=== PATIENT | male | born 1990 | race Caucasian/White ===

== ENCOUNTER 2022-10-31 15:24 | Outpatient (CLI) | payer BC, SELFPAY | END 2022-10-31 15:25 | disposition home or self-care (01) | PROVIDERS: PCP Physician Assistant Medical; Visit Provider Physician Assistant Medical | DX: Z00.00 Encounter for general adult medical examination without abnormal findings (principal); D68.51 Activated protein C resistance | CPT/HCPCS: 80053; 80061; 84443 ==

== ENCOUNTER 2024-01-09 07:53 | Outpatient (CLI) | payer BC, SELFPAY | END 2024-01-09 07:54 | disposition home or self-care (01) | PROVIDERS: PCP Physician Assistant Medical; Visit Provider Physician Assistant Medical | DX: Z00.00 Encounter for general adult medical examination without abnormal findings (principal); D68.51 Activated protein C resistance; Z13.29 Encounter for screening for other suspected endocrine disorder; Z13.9 Encounter for screening, unspecified | CPT/HCPCS: 80053; 80061; 84443 ==

== ENCOUNTER 2024-04-07 07:56 | Emergency (ER) | payer BC, SELFPAY ==
[2024-04-07 08:11] VITALS: BP 138/99; PULSE 92; RESP 18; TEMP 36.8; O2SAT 98; BMI 29.4
--- NOTE | 2024-04-07 08:16 | ED.CHESTPAIN ---
HPI - Chest Pain General Time Seen by Provider: 08:16 Date Seen: 04/07/24 Chief Complaint: Chest Pain Stated Complaint: Chest pressure, palpitations, c/o weird breathing Time Seen by Provider: 04/07/24 08:16 Source: patient and RN notes reviewed Mode of arrival: ambulatory Limitations: no limitations History of Present Illness HPI narrative: Tam is a very pleasant 33-year-old male with a history of factor 5 Leiden, previous clots, currently on Eliquis, strong family history of early heart disease who comes to the emergency room with chest pain. Tam woke this morning at 0500 hours with chest pain nonradiating associated with shortness of breath that persisted for approximately 20 minutes. He notes no cough cold congestion but does describe some slight allergies. Yesterday he had a normal day and he walks quite a bit and noted no fatigue chest pain or shortness of breath at that time. His mother at the age of 42 from heart disease. His father had a maker at 48 but is still alive. Tam states that after the initial 20 minutes the chest pain improved and he had 5-10 minutes with no symptoms. It then came back for an additional 10 minutes. He also had some shortness of breath on the way to the hospital here. When I meet Tam in room 3 he states that he had some chest pressure approximately 1 minute ago but has now abated. He states that is coming and going. At this very moment he has no symptoms. Tam denies nausea abdominal pain. He does have a history of reflux but these symptoms today were different. He denies lower extremity edema calf tenderness, recent extended car rides, airplane rides or periods of immobility. 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 Tam does not smoke. He does have a few beers a few times a week. Last night he had 4-5 beers during for Saturday night football. Related Data Home Medications ?Medication ?Instructions ?Recorded ?Confirmed zinc 04/07/24 Previous Rx's ?Medication ?Instructions ?Recorded apixaban 5 mg tablet (Eliquis) 5 mg PO BID #180 tabs 01/09/24 Allergies Allergy/AdvReac Type Severity Reaction Status Date / Time Penicillins Allergy Mild Rash Verified 01/09/24 07:45 Review of Systems Status of ROS Reports: 10 or more systems reviewed and unremarkable except as noted in History and below Const Denies: fever or chills Eyes Denies: change in vision ENMT Reports: nasal congestion; Denies: throat pain, neck pain, throat swelling or nasal discharge Cardio Reports: chest pain, palpitations and shortness of breath with exertion; Denies: edema, swelling of feet/ankles or lightheadedness Resp Reports: shortness of breath; Denies: cough or wheezing GI Denies: abdominal pain, nausea, vomiting, heartburn or blood in stool Denies: painful urination Musculo Denies: back pain or neck pain Neuro Denies: headache Allergy/Immuno Denies: throat swelling or wheezing PFSH PFS Medical History History of blood clots ?Z86.718 - Personal history of other venous thrombosis and embolism (ICD-10) Family History Other Factor V Leiden mutation Social History Narrative: does not use illicit drugs has 3 children nonsmoker occasional alcohol consumption What is your current living situation?: I presently have a place to live Problems where you live: pests, such as bugs, ants, or mice In the past 12 months, utilities in danger of being shut off: no In past 12 months, lack of transportation kept you from medical appts, meetings, work, or getting things needed for daily living: no In the past 12 mos, have been you worried that your food would run out before you had money to buy more?: never true In the past 12 mos, the food you bought just didn't last and you didn't have money to buy more?: never true Smoking Status: Never smoker How often does anyone, including family, friends and others, physically hurt you: never How often does anyone, including family, friends and others, insult or talk down to you: rarely How often does anyone, including family, friends and others, threaten you with harm: never How often does anyone, including family, friends and others, scream or curse at you: rarely Little interest or pleasure in doing things: several days Feeling down, depressed, or hopeless: several days Exam Narrative Exam Narrative: Alert and oriented. Very pleasant gentleman. Slightly anxious. External ears eyes nose clear. Neck is supple. Heart with a regular rate and rhythm. No additional heart sounds murmurs or rubs noted. Lungs are clear bilaterally. Abdomen soft nontender. No pulsating mass. Lower extremities with no edema. Bilateral pedal pulses palpated and are symmetrical. Moving all extremities. Const Vital Signs, click to edit/add: Vital Signs - 24 hr 04/07/24 08:11 Temperature 98.2 F Pulse Rate [Pulse Oximeter] 92 Respiratory Rate 18 Blood Pressure [Right Upper Arm] 138/99 H Pulse Oximetry 98 Oxygen Delivery Method Room Air Documenting provider has reviewed patient's vital signs: yes Course Course ED Course: Differential diagnosis at this time includes acute coronary event, angina, pericarditis, COVID, anxiety, PE. At this time I have ordered EKG, troponin, chest x-ray, cardiac monitoring. Will get labs to include CBC, comprehensive panel, CRP, D-dimer. Reevaluation(s) Reevaluation #1: Initial troponin is negative. Patient has remained pain-free. Will await 2nd troponin. Currently awaiting Cardiology consult as patient does need some advanced imaging. Reevaluation #2: Discussed with this patient's family history, presenting symptoms. Initial troponin negative. Technical Support Specialist suggests CT angiogram. While we do not do those here, there is availability at the [facility] center same-day surgery in [place]. Patient should expect phone call from this site. Technical Support Specialist will order test and follow-up will be with Cardiology. Vital Signs Vital signs: Initial Vital Signs Temperature 98.2 F 04/07/24 08:11 Temperature Source Temporal Artery Scan 04/07/24 08:11 Pulse Rate 92 04/07/24 08:11 Respiratory Rate 18 04/07/24 08:11 Blood Pressure 138/99 H 04/07/24 08:11 Blood Pressure Mean 112 H 04/07/24 08:11 Blood Pressure Position Supine 04/07/24 08:11 Pulse Oximetry 98 04/07/24 08:11 Oxygen Delivery Method Room Air 04/07/24 08:11 Vital Signs Temperature 98.2 F 04/07/24 08:11 Pulse Rate 92 04/07/24 08:11 Respiratory Rate 18 04/07/24 08:11 Blood Pressure 138/99 H 04/07/24 08:11 Pulse Oximetry 98 04/07/24 08:11 Oxygen Delivery Method Room Air 04/07/24 08:11 Temperature 98.2 F 04/07/24 08:11 Pulse Rate 92 04/07/24 08:11 Respiratory Rate 18 04/07/24 08:11 Blood Pressure 138/99 H 04/07/24 08:11 Pulse Oximetry 98 04/07/24 08:11 Oxygen Delivery Method Room Air 04/07/24 08:11 Medications Administered Medications: Discontinued Medications Generic Name Dose Route Start Last Admin Trade Name Judah PRN Reason Stop Dose Admin Aspirin 81 mg 04/07/24 11:56 04/07/24 12:04 Aspirin 81 Mg Tab.Chew PO 04/07/24 11:57 81 mg ONCE ONE Administration MDM - Chest Pain MDM Narrative Medical decision making narrative: 1. Chest pain-patient was pain-free during the majority of his stay here. EKG and troponins both negative. Chest x-ray by my read reassuring. CTA will be ordered by cardiology and patient should be notified today. Patient noted to have elevated heart rate when I go in to discuss his disposition to home. I do expressed concern and do request him to stay but he states that his really wants him to come home and he really wants to get out of the emergency room. I do state that his D-dimer was normal, EKG and troponins were within normal limits but that I always have concerns when I have not found a direct cause of the symptoms. In spite of this he still wants to go home. He will be given aspirin prior to his discharge. I would like him to continue a baby aspirin daily until he sees cardiology. He should avoid any high stress or activity situations where his heart rate would would increase. He agrees to return to the emergency room or call 911 if he has worsening symptoms. 2. Disposition-home at this time. Seek medical attention for worsening symptoms. Medical Records Data Attestation: I reviewed the patient's medical records. Lab Data Attestation: I reviewed the patient's lab results. Labs: Lab Results 04/07/24 04/07/24 04/07/24 Range/Units 08:28 08:40 11:40 WBC 8.03 (4.50-11.00) K/uL RBC 5.48 (4.30-5.90) m/uL Hgb 16.8 (13.5-17.5) gm/dL Hct 49.5 (37.0-53.0) % MCV 90 (80-100) fL MCH 31 (26-34) pg MCHC 34 (32-36) gm/dL RDW Coeff of Donna 12.0 (11.5-15.5) % Plt Count 203 (140-440) K/uL Neut % (Auto) 67.7 (42.0-72.0) % Lymph % (Auto) 22.5 (20-44) % Simpson % (Auto) 5.6 (0.0-11.0) % Eos % (Auto) 2.5 (0.0-7.0) % Baso % (Auto) 0.7 (0.0-3.0) % Neut # (Auto) 5.43 (1.7-7.0) K/uL Lymph # (Auto) 1.81 (0.90-2.90) K/uL Simpson # (Auto) 0.40 (0.00-0.90) K/UL Eos # (Auto) 0.20 (0.00-0.50) K/uL Baso # (Auto) 0.06 (0.00-0.30) K/uL Abs Immat Gran (auto) 0.08 (0.00-0.30) K/uL Imm/Tot Granulo (auto) 1.0 % INR 0.96 (0.91-1.10) D-Dimer Quant (PE/DVT) 0.37 (0.00-0.50) ug/ml Sodium 140 (135-149) mmol/L Potassium 4.2 (3.6-5.1) mmol/L Chloride 103 (96-114) mmol/L Carbon Dioxide 29 (20-32) mmol/L Anion Gap 8 (7-15) mEq/L BUN 13 (5-24) mg/dL Creatinine 0.9 (0.5-1.5) mg/dL Estimated Creat Clear 118.29 Estimated GFR 114 ml/min Glucose 112 (60-115) mg/dL Calcium 9.6 (8.4-10.6) mg/dL Total Bilirubin 0.7 (0.1-1.5) mg/dL AST 35 (12-35) U/L ALT 52 H (4-50) U/L Alkaline Phosphatase 69 (40-150) U/L C-Reactive Protein < 0.5 L (0.5-1.0) mg/dL Total Protein 8.1 (6.0-8.3) g/dL Albumin 4.8 (3.3-5.0) g/dL Triglycerides 131 (40-149) mg/dL Cholesterol 253 H (90-199) mg/dL LDL Cholesterol, Calc 171 H (<100) mg/dL HDL Cholesterol 56 (>=40) mg/dL SARS-CoV-2 (PCR) Negative SARS-CoV-2 (Negative) Influenza Type A (PCR) Negative PCR FLU A (Negative) Influenza Type B (PCR) Negative PCR FLU B (Negative) RSV (PCR) Negative PCR RSV (Negative) POC Troponin I 0.00 L 0.00 L (0.01-0.04) ng/ml Imaging Data Chest x-ray: Attestation: I have reviewed the pertinent imaging results. My impression: No evidence of a widened mediastinum or infiltrates. Radiologist's impression: The cardiomediastinal silhouette and pulmonary vasculature are unremarkable. There is no focal airspace consolidation, pleural effusion, or pneumothorax. No displaced fractures. IMPRESSION: No acute cardiopulmonary process. ECG Data Attestation: I personally reviewed and interpreted this ECG as follows: ECG interpretation date: 04/07/24 Interpretation: Second EKG by my read shows sinus rhythm at a rate of 88. No acute ST or T-wave changes. QT and NC intervals within normal limits. EKG by my read shows sinus rhythm at a rate of 89. QT and NC intervals within normal limits. No acute ST or T-wave changes noted. Discharge Plan Discharge Clinical Impression: Chest pain Patient Disposition: Home, Self-Care Condition: Improved Additional Instructions: Await phone call from CT angiogram clinic in [place]. If you do not hear from them, please call them at One baby Aspirin daily. Avoid any activity which increases heart rate including prolonged walking, running, exercising, sexual activity or stress. Avoid alcohol. Return as needed for chest pain, shortness of breath. Prescriptions: No Action Eliquis 5 mg tablet 5 mg PO BID Qty: 180 3RF zinc Follow Up/Referrals: Lupe Arias PA-C [Primary Care Provider] - Stand Alone Forms: [employer] Info Instructions
--- NOTE | 2024-04-07 08:27 | CRLHL7_ITS ---
For Patients: As a result of the Cures Act, medical imaging exams and procedure reports are released immediately into your electronic medical record. You may view this report before your referring provider. If you have questions, please contact your health care provider. INDICATION: : CHEST PAIN, SOB COMPARISON: CT chest on July 22, 2017 and prior exams TECHNIQUE: One view(s) of the chest FINDINGS: The cardiomediastinal silhouette and pulmonary vasculature are unremarkable. There is no focal airspace consolidation, pleural effusion, or pneumothorax. No displaced fractures. IMPRESSION: No acute cardiopulmonary process. Dictated by Dallas Shepherd MD @ 04/07/2024 12:22:44 PM (Electronically Signed)
[2024-04-07 08:51] LABS: Basophils Absolute Auto 0.06 K/uL (0.00-0.30); Basophils Percent Auto 0.7 % (0.0-3.0); Eosinophils Percent Auto 2.5 % (0.0-7.0); Hematocrit 49.5 % (37.0-53.0); Hemoglobin* 16.8 gm/dL (13.5-17.5); Immature Granulocytes Abs Auto 0.08 K/uL (0.00-0.30); Lymphocytes Absolute Auto 1.81 K/uL (0.90-2.90); Lymphocytes Percent Auto 22.5 % (20-44); Mean Corpuscular HGB Conc 34 gm/dL (32-36); Mean Corpuscular Hemoglobin 31 pg (26-34); Mean Corpuscular Volume 90 fL (80-100); Monocytes Percent Auto 5.6 % (0.0-11.0); Neutrophils Absolute Auto 5.43 K/uL (1.7-7.0); Neutrophils Percent Auto 67.7 % (42.0-72.0); Platelet Count* 203 K/uL (140-440); Red Blood Count 5.48 m/uL (4.30-5.90); White Blood Count* 8.03 K/uL (4.50-11.00)
[2024-04-07 08:59] LABS: Slide Review Reflex No
[2024-04-07 09:07] LABS: Albumin* 4.8 g/dL (3.3-5.0); Chloride* 103 mmol/L (96-114); Sodium* 140 mmol/L (135-149)
[2024-04-07 09:08] LABS: Potassium* 4.2 mmol/L (3.6-5.1)
[2024-04-07 09:09] LABS: INR 0.96 (0.91-1.10); Prothrombin Time 13.4 Seconds
[2024-04-07 09:10] LABS: Anion Gap 8 mEq/L (7-15); Aspartate Amino Transferase* 35 U/L (12-35); Bilirubin Total* 0.7 mg/dL (0.1-1.5); Carbon Dioxide* 29 mmol/L (20-32); Creatinine* 0.9 mg/dL (0.5-1.5); Est. Creatinine Clearance* 118.29; Estimated Glomerular Filt Rate 114 ml/min
[2024-04-07 09:11] LABS: Alanine Aminotransferase* 52 U/L (4-50); Alkaline Phosphatase* 69 U/L (40-150); Blood Urea Nitrogen* 13 mg/dL (5-24); Calcium* 9.6 mg/dL (8.4-10.6); Glucose* 112 mg/dL (60-115); Total Protein* 8.1 g/dL (6.0-8.3)
[2024-04-07 09:12] LABS: D Dimer Quantitative* 0.37 ug/ml (0.00-0.50)
[2024-04-07 09:14] LABS: C Reactive Protein* < 0.5 mg/dL (0.5-1.0)
[2024-04-07 09:26] LABS: PCR FLU A Negative PCR FLU A (Negative); PCR FLU B Negative PCR FLU B (Negative); PCR RSV Negative PCR RSV (Negative); SARS PCR* Negative SARS-CoV-2 (Negative)
[2024-04-07 12:04] LABS: Cholesterol* 253 mg/dL (90-199); Triglycerides* 131 mg/dL (40-149)
[2024-04-07] MEDS: ASPIRIN 81 MG TAB.CHEW PO (12:04)
[2024-04-07 12:05] LABS: HDL Cholesterol* 56 mg/dL (>=40); LDL Cholesterol Calculated 171 mg/dL (<100)
== END 2024-04-07 12:07 | disposition home or self-care (01) ==
PROVIDERS: Emergency Provider Family Medicine; PCP Physician Assistant Medical
DX: R07.9 Chest pain, unspecified (principal)
CPT/HCPCS: 36415; 71045; 80053; 80061; 84484; 85025; 85379; 85610; 86140; 87631; 93005; 99284; 99285; A9270